=== PATIENT | male | born 1975 | race Caucasian/White ===

== ENCOUNTER 2017-03-02 18:19 | Emergency (ER) | payer MEDICARE, BC, MEDICAID ==
[~2017-03-02] VITALS: Ht 861.1 cm; Wt 79.4 kg
[~2017-03-02 18:19] MED LIST: ASPIRIN EC81 MG PO; BACTRIM DS1 TAB OR; BACTRIM DS1 TAB PO; ECOTRIN325 MG OR; HYDROCORT AC2.5% TOP; KEFLEX500 M1 PO; LOTRISONE EX; MIRALAX3350 N1 PO; MUPIROCIN2 % EX; ONDANSETRON4 MG PO; VITAMIN D400 UNI1 PO
[2017-03-02 19:11] VITALS: BP 132/64
[2017-03-02] MEDS ORDERED: BENADRYL25 M1 PO (19:11)
== END 2017-03-02 19:17 | disposition home or self-care (01) ==
LOC: ED 18:19
DX: L50.9 Urticaria, unspecified (principal)

== ENCOUNTER 2019-11-25 17:55 | Emergency (ER) | payer MEDICARE, BC, MEDICAID ==
[~2019-11-25] VITALS: Ht 157.5 cm; Wt 77.3 kg
[~2019-11-25 17:55] MED LIST changes: +BENADRYL25 M1 PO
[2019-11-25] MEDS ORDERED: FOLIC ACID1 M1 PO (18:45)
[2019-11-25] MEDS ORDERED: KEFLEX500 M1 PO ×2 (19:02)
[2019-11-25 19:40] VITALS: BP 134/77
== END 2019-11-25 19:45 | disposition home or self-care (01) ==
LOC: ED 17:55
DX: S92.321A Displaced fracture of second metatarsal bone, right foot, initial encounter for closed fracture (principal); S92.331A Displaced fracture of third metatarsal bone, right foot, initial encounter for closed fracture; S92.341A Displaced fracture of fourth metatarsal bone, right foot, initial encounter for closed fracture; Q90.9 Down syndrome, unspecified; W19.XXXA Unspecified fall, initial encounter

== ENCOUNTER 2020-05-06 07:25 | Emergency (ER) | payer MEDICARE, BC, MEDICAID ==
[~2020-05-06] VITALS: Ht 157.5 cm; Wt 80.0 kg
[~2020-05-06 07:25] MED LIST changes: +FOLIC ACID1 M1 PO
[2020-05-06] MEDS ORDERED: VITAMIN C + PO (07:50)
[2020-05-06 08:01] LABS: HEMATOCRIT 45.6 % (39.0-50.0); IMMATURE GRANULOCYTES 0.6 % (0.0-5.0); MEAN CELL VOLUME 93.6 fL CALC (80.0-100.0); MEAN CORPUSCULAR HGB 32.6 pG CALC (26.0-32.0); MEAN CORPUSCULAR HGB CONC 34.9 g/dL CAL (32.0-36.0); NEUT# 5.11 thou/uL (1.82-7.42); RED BLOOD COUNT 4.87 mill/uL (4.70-6.10); RED CELL DISTRI WIDTH 13.7 % (11.5-15.5)
[2020-05-06 08:03] LABS: HEMOGLOBIN 15.9 g/dl (14.0-18.0)
[2020-05-06 08:32] LABS: ALBUMIN 3.7 g/dL (3.2-5.0); ALKALINE PHOSPHATASE 70 u/l (38-126); ANION GAP 13 (6-22 (CALC)); BILIRUBIN, TOTAL 0.6 mg/dL (0.0-1.4); BUN 14 mg/dL (9-20); BUN/CREATININE RATIO 13 (12-20 (CALC)); CARBON DIOXIDE 24 mmol/l (22-30); CHLORIDE 103 mmol/l (95-108); CREATININE 1.1 mg/dL (0.7-1.3); GFR > 60 ML/MIN (>=60 (CALC)); GFR FOR AFR.AMER. > 60 ML/MIN (>=60 (CALC)); POTASSIUM 3.4 mmol/l (3.5-5.1); SGOT/AST 27 u/l (17-59); SODIUM 137 mmol/l (137-146); TOTAL PROTEIN 6.5 g/dL (6.3-8.2)
[2020-05-06 09:40] VITALS: BP 106/70
[2020-05-06] MEDS ORDERED: ZITHROMAX250 MG PO (23:06)
== END 2020-05-06 09:43 | disposition home or self-care (01) ==
LOC: ED 07:25
PROVIDERS: Emergency Medicine
DX: U07.1 COVID-19 (principal); J06.9 Acute upper respiratory infection, unspecified; R19.7 Diarrhea, unspecified; M79.10 Myalgia, unspecified site; R11.0 Nausea; Q90.9 Down syndrome, unspecified

== ENCOUNTER 2020-05-12 21:41 | Emergency (ER) | payer MEDICARE, BC, MEDICAID ==
[~2020-05-12] VITALS: Ht 157.5 cm; Wt 77.0 kg
[~2020-05-12 21:41] MED LIST changes: +VITAMIN C + PO; +ZITHROMAX250 MG PO
[2020-05-12] MEDS ORDERED: B121000 MC1 PO (22:16)
[2020-05-12 22:29] LABS: HEMATOCRIT 44.6 % (39.0-50.0); HEMOGLOBIN 15.9 g/dl (14.0-18.0); MEAN CELL VOLUME 90.7 fL CALC (80.0-100.0); MEAN CORPUSCULAR HGB 32.3 pG CALC (26.0-32.0); MEAN CORPUSCULAR HGB CONC 35.7 g/dL CAL (32.0-36.0); NEUT# 3.58 thou/uL (1.82-7.42); RED BLOOD COUNT 4.92 mill/uL (4.70-6.10); RED CELL DISTRI WIDTH 13.4 % (11.5-15.5)
[2020-05-12 22:48] LABS: ALBUMIN 3.9 g/dL (3.2-5.0); ALKALINE PHOSPHATASE 81 u/l (38-126); AMYLASE 81 u/l (30-110); ANION GAP 14 (6-22 (CALC)); BILIRUBIN, TOTAL 0.7 mg/dL (0.0-1.4); BUN 8 mg/dL (9-20); BUN/CREATININE RATIO 8 (12-20 (CALC)); CARBON DIOXIDE 24 mmol/l (22-30); CHLORIDE 102 mmol/l (95-108); GFR > 60 ML/MIN (>=60 (CALC)); GFR FOR AFR.AMER. > 60 ML/MIN (>=60 (CALC)); LIPASE 77 u/l (23-300); POTASSIUM 2.9 mmol/l (3.5-5.1); SGOT/AST 27 u/l (17-59); SODIUM 137 mmol/l (137-146); TOTAL PROTEIN 7.2 g/dL (6.3-8.2)
[2020-05-12 23:59] LABS: URINE BILIRUBIN - DIPSTICK NEGATIVE (NEGATIVE); URINE BLOOD DIPSTICK NEGATIVE (NEGATIVE); URINE COLOR YELLOW; URINE GLUCOSE - DIPSTICK NEGATIVE (NEGATIVE); URINE KETONE NEGATIVE (NEGATIVE); URINE LEUK ESTERASE NEGATIVE (NEGATIVE); URINE NITRITE - DIPSTICK NEGATIVE (Negative); URINE PH 6.5 (4.5-8.0); URINE PROTEIN - DIPSTICK NEGATIVE (NEG-TRACE); URINE SPECIFIC GRAVITY <=1.005; URINE UROBILINOGEN - DIPSTICK 0.2 E.U./dL (0.2)
[2020-05-13] MEDS ORDERED: ZOFRAN4 MG/TAB PO (00:12)
[2020-05-13] MEDS ORDERED: K-DUR/KLOR-CON20 MEQ PO (00:12)
[2020-05-13 00:16] VITALS: BP 108/60
[2020-05-13] MEDS ORDERED: PHENERGAN25 MG/TAB PO (19:24)
[2020-05-13] MEDS ORDERED: ZPAK PO (19:24)
[2020-05-13] MEDS ORDERED: DECADRON2 MG PO (19:24)
== END 2020-05-13 00:30 | disposition home or self-care (01) ==
LOC: ED 21:41
PROVIDERS: Family Medicine
DX: U07.1 COVID-19 (principal); A08.39 Other viral enteritis; E87.6 Hypokalemia; Q90.9 Down syndrome, unspecified

== ENCOUNTER 2020-05-13 15:33 | Emergency (ER) | payer MEDICARE, BC, MEDICAID ==
[~2020-05-13] VITALS: Ht 157.5 cm; Wt 80.0 kg
[~2020-05-13 15:33] MED LIST changes: +B121000 MC1 PO; +K-DUR/KLOR-CON20 MEQ PO; +ZOFRAN4 MG/TAB PO
[2020-05-13 17:04] LABS: HEMATOCRIT 42.2 % (39.0-50.0); HEMOGLOBIN 14.8 g/dl (14.0-18.0); IMMATURE GRANULOCYTES 1.4 % (0.0-5.0); MEAN CELL VOLUME 92.7 fL CALC (80.0-100.0); MEAN CORPUSCULAR HGB 32.5 pG CALC (26.0-32.0); MEAN CORPUSCULAR HGB CONC 35.1 g/dL CAL (32.0-36.0); NEUT# 3.85 thou/uL (1.82-7.42); RED BLOOD COUNT 4.55 mill/uL (4.70-6.10); RED CELL DISTRI WIDTH 13.6 % (11.5-15.5)
[2020-05-13 17:05] LABS: URINE BILIRUBIN - DIPSTICK NEGATIVE (NEGATIVE); URINE BLOOD DIPSTICK NEGATIVE (NEGATIVE); URINE COLOR YELLOW; URINE GLUCOSE - DIPSTICK NEGATIVE (NEGATIVE); URINE KETONE NEGATIVE (NEGATIVE); URINE LEUK ESTERASE NEGATIVE (NEGATIVE); URINE NITRITE - DIPSTICK NEGATIVE (Negative); URINE PROTEIN - DIPSTICK NEGATIVE (NEG-TRACE); URINE SPECIFIC GRAVITY 1.025; URINE UROBILINOGEN - DIPSTICK 0.2 E.U./dL (0.2)
[2020-05-13 17:24] LABS: ALBUMIN 3.6 g/dL (3.2-5.0); ALKALINE PHOSPHATASE 71 u/l (38-126); AMYLASE 72 u/l (30-110); BILIRUBIN, TOTAL 0.8 mg/dL (0.0-1.4); BUN 10 mg/dL (9-20); BUN/CREATININE RATIO 10 (12-20 (CALC)); CARBON DIOXIDE 26 mmol/l (22-30); CHLORIDE 104 mmol/l (95-108); CREATININE 1.1 mg/dL (0.7-1.3); GFR > 60 ML/MIN (>=60 (CALC)); GFR FOR AFR.AMER. > 60 ML/MIN (>=60 (CALC)); LIPASE 51 u/l (23-300); SGOT/AST 28 u/l (17-59); SODIUM 137 mmol/l (137-146); TOTAL PROTEIN 6.8 g/dL (6.3-8.2)
[2020-05-13 17:27] LABS: ANION GAP 11 (6-22 (CALC)); POTASSIUM 3.5 mmol/l (3.5-5.1)
[2020-05-13] MEDS ORDERED: ZPAK PO (19:24)
[2020-05-13] MEDS ORDERED: PHENERGAN25 MG/TAB PO (19:24)
[2020-05-13] MEDS ORDERED: DECADRON2 MG PO (19:24)
[2020-05-13 20:00] VITALS: BP 138/98
== END 2020-05-13 20:12 | disposition home or self-care (01) ==
LOC: ED 15:33
DX: U07.1 COVID-19 (principal); J12.82 Pneumonia due to coronavirus disease 2019; R11.0 Nausea; Q90.9 Down syndrome, unspecified
CPT/HCPCS: Q9967

== ENCOUNTER 2020-05-23 17:13 | Emergency (ER) | payer MEDICARE, BC, MEDICAID ==
[~2020-05-23] VITALS: Ht 157.5 cm; Wt 77.3 kg
[~2020-05-23 17:13] MED LIST changes: +DECADRON2 MG PO; +PHENERGAN25 MG/TAB PO; +ZPAK PO
[2020-05-23] MEDS ORDERED: ZITHROMAX Z-PA250 MG PO (17:26)
[2020-05-23] MEDS ORDERED: DEXAMETHASONE2 MG PO (17:27)
[2020-05-23 18:40] VITALS: BP 117/65
== END 2020-05-23 18:40 | disposition home or self-care (01) ==
LOC: ED 17:13
DX: R51.9 Headache, unspecified (principal); Q90.9 Down syndrome, unspecified; Z86.16 Personal history of COVID-19

== ENCOUNTER 2021-06-22 09:59 | Emergency (ER) | payer MEDICARE, BC, MEDICAID ==
[~2021-06-22] VITALS: Ht 157.5 cm; Wt 79.0 kg
[2021-06-22] VITALS (13 sets, daily range): BP systolic 88–128; BP diastolic 52–75
[~2021-06-22 09:59] MED LIST changes: +DEXAMETHASONE2 MG PO; +ZITHROMAX Z-PA250 MG PO
== END 2021-06-22 14:00 | disposition home or self-care (01) ==
LOC: ED 09:59
PROC: 0HQ1XZZ Repair Face Skin, External Approach (ICD-10-PCS; principal; 2021-06-22)
DX: S01.112A Laceration without foreign body of left eyelid and periocular area, initial encounter (principal); Q90.9 Down syndrome, unspecified; W19.XXXA Unspecified fall, initial encounter; Y92.009 Unspecified place in unspecified non-institutional (private) residence as the place of occurrence of the external cause; Z86.16 Personal history of COVID-19

== ENCOUNTER 2021-08-15 16:43 | Inpatient (IN) | payer MEDICARE, BC, MEDICAID ==
[2021-08-15] VITALS (31 sets, daily range): BP systolic 87–125; BP diastolic 43–67
[~2021-08-15] VITALS: Ht 157.5 cm; Wt 71.0 kg
[2021-08-15 17:49] LABS: HEMATOCRIT 39.1 % (39.0-50.0); HEMOGLOBIN 14.6 g/dl (14.0-18.0); IMMATURE GRANULOCYTES 1.6 % (0.0-5.0); MEAN CORPUSCULAR HGB 31.1 pG CALC (26.0-32.0); MEAN CORPUSCULAR HGB CONC 37.3 g/dL CAL (32.0-36.0); NEUT# 10.49 thou/uL (1.82-7.42); RED BLOOD COUNT 4.7 mill/uL (4.70-6.10)
[2021-08-15 17:58] LABS: MEAN CELL VOLUME 83.2 fL CALC (80.0-100.0)
[2021-08-15 18:05] LABS: ALBUMIN 3.3 g/dL (3.2-5.0); BILIRUBIN, TOTAL 0.8 mg/dL (0.0-1.4); BUN 6 mg/dL (9-20); BUN/CREATININE RATIO 5 (12-20 (CALC)); CARBON DIOXIDE 24 mmol/l (22-30); CREATININE 1.2 mg/dL (0.7-1.3); GFR FOR AFR.AMER. > 60 ML/MIN (>=60 (CALC)); GFR OTHER RACES > 60 ML/MIN (>=60 (CALC)); POTASSIUM 2.8 mmol/l (3.5-5.1); TOTAL PROTEIN 6.5 g/dL (6.3-8.2)
[2021-08-15 18:08] LABS: ALKALINE PHOSPHATASE 238 u/l (38-126); ANION GAP 14 (6-22 (CALC)); CHLORIDE 82 mmol/l (95-108); SGOT/AST 118 u/l (17-59); SODIUM 117 mmol/l (137-146)
[2021-08-15 18:41] LABS: URINE BILIRUBIN - DIPSTICK NEGATIVE (NEGATIVE); URINE BLOOD DIPSTICK SMALL (NEGATIVE); URINE COLOR YELLOW; URINE GLUCOSE - DIPSTICK NEGATIVE (NEGATIVE); URINE KETONE NEGATIVE (NEGATIVE); URINE PH 6.5 (4.5-8.0); URINE PROTEIN - DIPSTICK NEGATIVE (NEG-TRACE); URINE SPECIFIC GRAVITY <=1.005; URINE UROBILINOGEN - DIPSTICK 0.2 E.U./dL (0.2)
[2021-08-15 18:42] LABS: URINE LEUK ESTERASE LARGE (NEGATIVE); URINE NITRITE - DIPSTICK NEGATIVE (Negative)
[2021-08-15 18:47] LABS: URINE BACTERIA MANY hpf; URINE WBC >100 WBC/hpf (0-5)
[2021-08-15] MEDS ORDERED: TRILEPTAL300 M1 PO (21:16)
[2021-08-15] MEDS ORDERED: TRILEPTAL150 M1 PO (21:17)
[2021-08-15] MEDS ORDERED: FOLIC ACID1 MG PO (21:18)
[2021-08-15] MEDS ORDERED: DONEPEZIL10 MG PO (21:18)
[2021-08-15 23:16] LABS: ANION GAP 12 (6-22 (CALC)); BUN 5 mg/dL (9-20); BUN/CREATININE RATIO 5 (12-20 (CALC)); CARBON DIOXIDE 22 mmol/l (22-30); CHLORIDE 91 mmol/l (95-108); CREATININE 1.1 mg/dL (0.7-1.3); GFR FOR AFR.AMER. > 60 ML/MIN (>=60 (CALC)); GFR OTHER RACES > 60 ML/MIN (>=60 (CALC)); POTASSIUM 2.7 mmol/l (3.5-5.1); SODIUM 122 mmol/l (137-146)
[2021-08-15 23:22] LABS: MAGNESIUM 2.6 mg/dL (1.6-2.3)
[2021-08-16] VITALS (92 sets, daily range): BP systolic 86–136; BP diastolic 43–74
[2021-08-16 07:28] LABS: ANION GAP 12 (6-22 (CALC)); BUN 5 mg/dL (9-20); BUN/CREATININE RATIO 5 (12-20 (CALC)); CARBON DIOXIDE 19 mmol/l (22-30); CHLORIDE 101 mmol/l (95-108); GFR FOR AFR.AMER. > 60 ML/MIN (>=60 (CALC)); GFR OTHER RACES > 60 ML/MIN (>=60 (CALC)); SODIUM 128 mmol/l (137-146)
[2021-08-16] MEDS ORDERED: FAMOTIDINE20 M1 PO (08:02)
[2021-08-16] MEDS ORDERED: RISPERIDONE0.5 MG PO (08:03)
[2021-08-16] MEDS ORDERED: CLINDAMYCIN PHOSP TOP (08:04)
[2021-08-17] VITALS (97 sets, daily range): BP systolic 87–136; BP diastolic 46–83
[2021-08-17 06:22] LABS: MEAN CELL VOLUME 87.2 fL CALC (80.0-100.0); MEAN CORPUSCULAR HGB 31.6 pG CALC (26.0-32.0); MEAN CORPUSCULAR HGB CONC 36.2 g/dL CAL (32.0-36.0); RED BLOOD COUNT 3.58 mill/uL (4.70-6.10); RED CELL DISTRI WIDTH 12.9 % (11.5-15.5)
[2021-08-17 06:29] LABS: HEMATOCRIT 31.2 % (39.0-50.0); HEMOGLOBIN 11.3 g/dl (14.0-18.0)
[2021-08-17 06:40] LABS: ANION GAP 5 (6-22 (CALC)); BUN 5 mg/dL (9-20); BUN/CREATININE RATIO 5 (12-20 (CALC)); CARBON DIOXIDE 26 mmol/l (22-30); CHLORIDE 106 mmol/l (95-108); GFR FOR AFR.AMER. > 60 ML/MIN (>=60 (CALC)); GFR OTHER RACES > 60 ML/MIN (>=60 (CALC)); MAGNESIUM 1.9 mg/dL (1.6-2.3); POTASSIUM 2.9 mmol/l (3.5-5.1); SODIUM 134 mmol/l (137-146)
[2021-08-18] VITALS (58 sets, daily range): BP systolic 79–138; BP diastolic 46–83
[2021-08-18 05:34] LABS: HEMATOCRIT 27.7 % (39.0-50.0); HEMOGLOBIN 9.8 g/dl (14.0-18.0); MEAN CELL VOLUME 89.6 fL CALC (80.0-100.0); MEAN CORPUSCULAR HGB 31.7 pG CALC (26.0-32.0); MEAN CORPUSCULAR HGB CONC 35.4 g/dL CAL (32.0-36.0); RED BLOOD COUNT 3.09 mill/uL (4.70-6.10)
[2021-08-18 05:52] LABS: ANION GAP 5 (6-22 (CALC)); BUN 6 mg/dL (9-20); BUN/CREATININE RATIO 7 (12-20 (CALC)); CARBON DIOXIDE 26 mmol/l (22-30); CHLORIDE 103 mmol/l (95-108); CREATININE 0.9 mg/dL (0.7-1.3); GFR FOR AFR.AMER. > 60 ML/MIN (>=60 (CALC)); GFR OTHER RACES > 60 ML/MIN (>=60 (CALC)); MAGNESIUM 1.6 mg/dL (1.6-2.3); SODIUM 130 mmol/l (137-146)
[2021-08-18 05:55] LABS: ALKALINE PHOSPHATASE 116 u/l (38-126); BILIRUBIN, TOTAL 0.4 mg/dL (0.0-1.4); SGOT/AST 26 u/l (17-59); TOTAL PROTEIN 4.2 g/dL (6.3-8.2)
[2021-08-19] VITALS (11 sets, daily range): BP systolic 96–134; BP diastolic 52–74
[2021-08-19 05:47] LABS: HEMATOCRIT 33.1 % (39.0-50.0); HEMOGLOBIN 11.5 g/dl (14.0-18.0); MEAN CELL VOLUME 91.9 fL CALC (80.0-100.0); MEAN CORPUSCULAR HGB 31.9 pG CALC (26.0-32.0); MEAN CORPUSCULAR HGB CONC 34.7 g/dL CAL (32.0-36.0); RED BLOOD COUNT 3.6 mill/uL (4.70-6.10); RED CELL DISTRI WIDTH 13.1 % (11.5-15.5)
[2021-08-19 06:07] LABS: BUN 12 mg/dL (9-20); BUN/CREATININE RATIO 8 (12-20 (CALC)); CARBON DIOXIDE 26 mmol/l (22-30); CHLORIDE 109 mmol/l (95-108); CREATININE 1.4 mg/dL (0.7-1.3); GFR FOR AFR.AMER. > 60 ML/MIN (>=60 (CALC)); GFR OTHER RACES 54 ML/MIN (>=60 (CALC)); MAGNESIUM 1.7 mg/dL (1.6-2.3)
[2021-08-19 06:09] LABS: ANION GAP 6 (6-22 (CALC)); SODIUM 137 mmol/l (137-146)
[2021-08-20 04:29] VITALS: BP 92/55
[2021-08-20 06:19] LABS: HEMATOCRIT 30.2 % (39.0-50.0); MEAN CELL VOLUME 90.1 fL CALC (80.0-100.0); MEAN CORPUSCULAR HGB 32.8 pG CALC (26.0-32.0); MEAN CORPUSCULAR HGB CONC 36.4 g/dL CAL (32.0-36.0); RED BLOOD COUNT 3.35 mill/uL (4.70-6.10); RED CELL DISTRI WIDTH 12.9 % (11.5-15.5)
[2021-08-20 06:38] LABS: ALKALINE PHOSPHATASE 130 u/l (38-126); ANION GAP 6 (6-22 (CALC)); BILIRUBIN, TOTAL 0.5 mg/dL (0.0-1.4); BUN 12 mg/dL (9-20); BUN/CREATININE RATIO 8 (12-20 (CALC)); CARBON DIOXIDE 29 mmol/l (22-30); CHLORIDE 103 mmol/l (95-108); CREATININE 1.5 mg/dL (0.7-1.3); GFR FOR AFR.AMER. > 60 ML/MIN (>=60 (CALC)); GFR OTHER RACES 50 ML/MIN (>=60 (CALC)); MAGNESIUM 1.8 mg/dL (1.6-2.3); POTASSIUM 3.6 mmol/l (3.5-5.1); SGOT/AST 38 u/l (17-59); SODIUM 135 mmol/l (137-146); TOTAL PROTEIN 4.9 g/dL (6.3-8.2)
[2021-08-20 06:39] LABS: ALBUMIN 2.5 g/dL (3.2-5.0)
[2021-08-20 08:00] VITALS: BP 92/55
[2021-08-20 10:23] VITALS: BP 129/66
[2021-08-20 16:26] VITALS: BP 129/66
[2021-08-20 18:58] VITALS: BP 99/58
[2021-08-21] VITALS (8 sets, daily range): BP systolic 98–121; BP diastolic 50–73
[2021-08-21 05:06] LABS: HEMATOCRIT 30.4 % (39.0-50.0); HEMOGLOBIN 10.2 g/dl (14.0-18.0); IMMATURE GRANULOCYTES 4.9 % (0.0-5.0); MEAN CELL VOLUME 93.5 fL CALC (80.0-100.0); MEAN CORPUSCULAR HGB 31.4 pG CALC (26.0-32.0); MEAN CORPUSCULAR HGB CONC 33.6 g/dL CAL (32.0-36.0); NEUT# 3.89 thou/uL (1.82-7.42); RED BLOOD COUNT 3.25 mill/uL (4.70-6.10); RED CELL DISTRI WIDTH 13.1 % (11.5-15.5)
[2021-08-21 05:25] LABS: ANION GAP 7 (6-22 (CALC)); BUN 16 mg/dL (9-20); BUN/CREATININE RATIO 11 (12-20 (CALC)); CARBON DIOXIDE 28 mmol/l (22-30); CHLORIDE 101 mmol/l (95-108); CREATININE 1.5 mg/dL (0.7-1.3); GFR FOR AFR.AMER. > 60 ML/MIN (>=60 (CALC)); GFR OTHER RACES 50 ML/MIN (>=60 (CALC)); MAGNESIUM 1.9 mg/dL (1.6-2.3); POTASSIUM 3.6 mmol/l (3.5-5.1); SODIUM 133 mmol/l (137-146)
[2021-08-22] VITALS (7 sets, daily range): BP systolic 111–137; BP diastolic 57–78
[2021-08-22 05:43] LABS: ANION GAP 6 (6-22 (CALC)); BUN 15 mg/dL (9-20); BUN/CREATININE RATIO 11 (12-20 (CALC)); CARBON DIOXIDE 27 mmol/l (22-30); CHLORIDE 104 mmol/l (95-108); CREATININE 1.4 mg/dL (0.7-1.3); GFR FOR AFR.AMER. > 60 ML/MIN (>=60 (CALC)); GFR OTHER RACES 54 ML/MIN (>=60 (CALC)); POTASSIUM 3.6 mmol/l (3.5-5.1); SODIUM 133 mmol/l (137-146)
== END 2021-08-22 14:38 | DRG 871 ==
LOC: ED 16:43 → ED-I 20:36 → ICU 21:04 → ED 21:04 → ICU 08-16 00:30 → MS2 08-18 23:57
PROVIDERS: Family Medicine; Internal Medicine; ADMIT Internal Medicine; ATTEND Internal Medicine
PROC: 02HV33Z Insertion of Infusion Device into Superior Vena Cava, Percutaneous Approach (ICD-10-PCS; principal; 2021-08-16)
PROC: 0T9B70Z Drainage of Bladder with Drainage Device, Via Natural or Artificial Opening (ICD-10-PCS; 2021-08-16)
DX: A41.9 Sepsis, unspecified organism (principal); J18.9 Pneumonia, unspecified organism; N39.0 Urinary tract infection, site not specified; E87.1 Hypo-osmolality and hyponatremia; N17.9 Acute kidney failure, unspecified; R65.20 Severe sepsis without septic shock; E87.6 Hypokalemia; I95.9 Hypotension, unspecified; Q90.9 Down syndrome, unspecified; F03.90 Unspecified dementia, unspecified severity, without behavioral disturbance, psychotic disturbance, mood disturbance, and anxiety; T43.95XA Adverse effect of unspecified psychotropic drug, initial encounter; S00.81XA Abrasion of other part of head, initial encounter; W19.XXXA Unspecified fall, initial encounter; Y92.009 Unspecified place in unspecified non-institutional (private) residence as the place of occurrence of the external cause; B96.89 Other specified bacterial agents as the cause of diseases classified elsewhere; Z86.16 Personal history of COVID-19; Z20.822 Contact with and (suspected) exposure to COVID-19
CPT/HCPCS: J3475; Q9967